=== PATIENT | female | born 1970 | race Two or more races ===

== ENCOUNTER 2024-03-16 13:47 | Emergency (ER) | payer MEDICAID, OTHER ==
[~2024-03-16] VITALS: Ht 157.5 cm; Wt 94.5 kg
[2024-03-16] MEDS: cloNIDine HCL 0.1 MG TAB PO ONE (14:23)
[2024-03-16] MEDS ORDERED: LISI10TA34 PO (15:26)
[2024-03-16] MEDS ORDERED: CEPH250C PO (15:26)
[2024-03-16 16:05] VITALS: BP 134/99; PULSE 81; RESP 18; O2SAT 98
== END 2024-03-16 16:33 | disposition home or self-care (01) ==
LOC: ER 13:47
DX: I16.0 Hypertensive urgency (principal); J02.9 Acute pharyngitis, unspecified; Z98.890 Other specified postprocedural states; Z79.899 Other long term (current) drug therapy